=== PATIENT | female | born 1990 | race Two or more races ===

== ENCOUNTER 2022-01-26 13:15 | Inpatient (IN) | payer OTHER ==
[~2022-01-26] VITALS: Ht 152.4 cm; Wt 61.2 kg
== END 2022-02-14 11:44 | disposition home or self-care (01) | DRG 807 ==
LOC: LDR 02-11 17:29 → OB/GYN 02-11 17:29
PROVIDERS: ADMIT Obstetrics & Gynecology; ATTEND Obstetrics & Gynecology
PROC: 10E0XZZ Delivery of Products of Conception, External Approach (ICD-10-PCS; principal; 2022-02-12)
PROC: 4A1HXCZ Monitoring of Products of Conception, Cardiac Rate, External Approach (ICD-10-PCS; 2022-02-12)
DX: O80 Encounter for full-term uncomplicated delivery (principal); Z37.0 Single live birth; Z3A.40 40 weeks gestation of pregnancy; Z20.822 Contact with and (suspected) exposure to COVID-19

== ENCOUNTER 2023-12-08 00:34 | Inpatient (IN) | payer OTHER ==
[~2023-12-08] VITALS: Ht 152.4 cm; Wt 59.4 kg
[~2023-12-08 00:34] MED LIST: IRON240 MG PO; PRENATABS RX T1 EACH PO
[2023-12-08 01:04] LABS: HEMATOCRIT 32.1 % (36.0-45.00); HEMOGLOBIN 10.4 g/dL (12.0-15.00); MEAN CELL VOLUME 78.8 fL (80.00-100.00); MEAN CORPUSCULAR HEMOGLOBIN 25.7 pg (27.00-32.0); MEAN CORPUSCULAR HGB CONC 32.6 g/dl (32.0-36.0); PLATELET COUNT 149 K/uL (150-450); RED BLOOD COUNT 4.07 M/uL (4.00-6.00); RED CELL DISTRIBUTION WIDTH 15.7 % (11.5-14.5)
[2023-12-08 01:15] LABS: INR < 0.93; PROTHROMBIN TIME 9.3 SECONDS (9.0-11.5)
[2023-12-08] MEDS ORDERED: LIDOCAINE HCL 1% 200MG/20ML VIAL IJ SCH (01:15)
[2023-12-08] MEDS ORDERED: CHLORHEXIDINE GLUCONATE 120 ML BOTTLE TOP SCH (01:15)
[2023-12-08] MEDS ORDERED: OxyCODONE HCL/APAP UD (PERCOCET) PO PRN (01:15)
[2023-12-08] MEDS ORDERED: ERYTHROMYCIN BASE 1 GM TUBE OP SCH (01:15)
[2023-12-08] MEDS ORDERED: OXYTOCIN 20 UNITS/500ML RL PIGGYBAG IV SCH (01:15)
[2023-12-08 01:20] LABS: BILIRUBIN TOTAL 0.83 mg/dL (0.3-1.2); CALCIUM 8.9 mg/dL (8.5-10.1); CREATININE SERUM 0.65 mg/dL (0.55-1.02); GFR 106.31; GLOBULINA 3.7 G/DL (2.4-3.5); POTASSIUM 3.94 mEq/L (3.5-5.1); TOTAL PROTEIN 6.7 gm/dL (6.4-8.2)
[2023-12-08] MEDS ORDERED: OXYTOCIN 1,000 ML IV SCH (02:00)
[2023-12-08] MEDS ORDERED: KETOROLAC TROMETHAMINE 10 MG TABLET PO SCH (06:00)
[2023-12-08] MEDS ORDERED: PNV,CALCIUM 72/IRON/FOLIC ACID 1 TAB TABLET PO SCH (09:00)
== END 2023-12-10 15:16 | disposition home or self-care (01) | DRG 807 ==
LOC: LDR 00:34 → OB/GYN 02:11
PROVIDERS: Obstetrics & Gynecology Maternal & Fetal Medicine; ADMIT Obstetrics & Gynecology; ATTEND Obstetrics & Gynecology
PROC: 10E0XZZ Delivery of Products of Conception, External Approach (ICD-10-PCS; principal; 2023-12-08)
PROC: 0KQM0ZZ Repair Perineum Muscle, Open Approach (ICD-10-PCS; 2023-12-08)
PROC: 4A1HXCZ Monitoring of Products of Conception, Cardiac Rate, External Approach (ICD-10-PCS; 2023-12-08)
DX: O70.1 Second degree perineal laceration during delivery (principal); Z37.0 Single live birth; Z3A.37 37 weeks gestation of pregnancy; Z20.822 Contact with and (suspected) exposure to COVID-19

== ENCOUNTER 2025-07-09 10:00 | Emergency (ER) | payer OTHER ==
[~2025-07-09] VITALS: Ht 152.4 cm; Wt 49.9 kg
[2025-07-09 11:27] LABS: BASO % 1.0 % (0.1-1.2); EOS # 0.13 (0.04-0.54); EOS % 2.2 % (0.7-7.0); LYMPH # 2.57 (1.18-3.74); LYMPH % 42.8 % (19.3-53.1); MEAN PLATELET VOLUME 11.80 fl (9.4-12.4); MONO # 0.45 (0.24-0.82); MONO % 7.5 % (4.7-12.5); NEUT # 2.79 (1.56-6.13); NEUT % 46.5 % (34.0-71.1); RED CELL DISTRIBUTION WIDTH 12.8 % (11.6-14.4)
[2025-07-09 11:51] LABS: INR 1.0
[2025-07-09 12:18] LABS: ALT/SGPT 28 U/L (12-78); AST/SGOT 15 U/L (15-37); BILIRUBIN TOTAL 1.08 mg/dL (0.3-1.2); BUN CREA RATIO 18 (7.0-25.0); CREATININE SERUM 0.67 mg/dL (0.55-1.02); GFR 101.36; GLOBULINA 3.5 G/DL (2.4-3.5); GLUCOSE FASTING 99 mg/dL (65-100); OSMOLALITY SERUM 283 MOSM/KG (275-295)
[2025-07-09 12:23] LABS: HCG QUANTITATIVE < 1 mUI/mL (1-3)
[2025-07-09 12:29] LABS: COVID-19 AG NEGATIVE (NEGATIVE)
[2025-07-09 12:41] LABS: URINE APPEARANCE Clear; URINE BILIRRUBIN Negative (NEGATIVE); URINE BLOOD Negative; URINE COLOR Yellow; URINE GLUCOSE Negative (NEGATIVE); URINE KETONE Negative (NEGATIVE); URINE LEUKOCYTE Moderate; URINE NITRATE Negative; URINE PROTEIN Negative (NEGATIVE); URINE UROBILINOGEN 0.2 E.U./dl
[2025-07-09 12:45] LABS: URINE BACTERIA 513.6 uL (0.0-1933); URINE EPITHELIAL CELLS 19.9 uL (0.0-38.8); URINE RBC 5.4 uL (0.0-20.8); URINE WBC 69.3 uL (0.0-23.2)
[2025-07-09 13:01] LABS: URINE CAST 0.29 uL (0.0-1.40)
[2025-07-09] MEDS ORDERED: CEFTRIAXONE SODIUM 1,000 MG VIAL IM ONE (13:45)
[2025-07-09] MEDS ORDERED: ANTIVERT25 M2 PO (15:13)
[2025-07-09] MEDS ORDERED: PEPCID AC20 MG PO (15:13)
[2025-07-09] MEDS ORDERED: BACTRIM DS TAB1 EACH PO (15:13)
== END 2025-07-09 16:20 | disposition home or self-care (01) ==
LOC: ER 10:01
PROVIDERS: General Practice
DX: R42 Dizziness and giddiness (principal); Z20.822 Contact with and (suspected) exposure to COVID-19
CPT/HCPCS: 36415; 70460; 71046; 93005; Q9965